=== PATIENT | male | born 1940 | race Caucasian/White ===

== ENCOUNTER 2016-12-21 10:38 | Inpatient (IN) ==
--- NOTE | 2016-12-21 13:33 | Internal Med History&Physical ---
Date of Encounter: 12/21/16 Time of Encounter: 13:31 Assessment and Plan (1) Supratherapeutic INR Current visit: Yes Status: Acute INR 3.8 and revealed today. Hold Coumadin. Check INR in the morning. Dose warfarin according. (2) Atrial fibrillation with RVR Current visit: No Status: Acute Currently on Cardizem drip rate controlled. Start oral diltiazem. Titrate off the drip. Monitor on telemetry. (3) Acute diastolic CHF (congestive heart failure) Current visit: Yes Status: Acute Likely exacerbated by A. fib with RVR. Trend troponins to rule out ACS as possible inciting factor. We will treat with IV Lasix twice a day. Strict I's and O's. Daily weights. No available EF on records. We will obtain echocardiogram. Internal Medicine - H&P: HPI Chief complaint: Shortness of breath Admitted From: Hospital to Hospital Transfer Plans for Post Hospital Care: Home History of present illness: Mr. Richardson is a 76 year old male with past medical history significant for chronic atrial fibrillation who presented to the hospital for evaluation of shortness of breath. 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 Associated with chest pressure, no chest pain. Denies fevers chills cough nausea vomiting diarrhea. He presented to [facility] where he was found to be in nature fibrillation with rapid ventricular response. He was given IV Cardizem and transferred to our facility for further workup and care. A 10 point review of systems positive as above. Also positive for chronic lower extremity swelling, positive for psoriasis rash on the legs. Past medical history: Essential hypertension, GERD, chronic atrial fibrillation , psoriasis Family history: Positive for history of heart disease in both parents. Social history: Never smoker. Quit drinking 2 years ago. Heavy alcohol use prior to that. Past Med Surg Social Fam HX - Past Medical History Medical history: atrial fibrillation, GERD, hypertension, other Psychiatric history: no psych history - Past Surgical History Surgical History: cataract, hip replacement, orthopedic, other, other - Social History Smoking Status: Never smoker Smokeless Tobacco Status: No Alcohol use: none Drug use: none - Family History Mother Living Status: Hx Family Cardiac Disorders: Yes Hx Family Respiratory Disorders: (CAD) Internal Medicine - H&P: Meds Warfarin [Coumadin] 2.5 mg PO DAILY 06/09/15 [History] 3 Allergy/AdvReac Type Severity Reaction Status Date / Time No Known Allergies Allergy Verified 12/21/16 08:22 All Systems PM: A 10-system review of systems was performed and is negative for pertinent findings except as documented above in the HPI. - Constitutional Vitals: Temp Pulse Resp BP Pulse Ox 97.7 F 66 12 139/87 94 12/21/16 12:24 12/21/16 12:24 12/21/16 12:24 12/21/16 12:24 12/21/16 13:26 General appearance: Present: A&O X 3, no acute distress - Eye Additional comments: Pupils are equal and round. Left pupil is reactive to light, right pupil is not. - Respiratory Respiratory exam: Present: rales. Absent: accessory muscle use, rhonchi, wheezes - Cardiovascular Cardiovascular exam: Present: irregular rhythm, +S1, +S2. Absent: diastolic murmur, gallop, rubs, systolic murmur - GI/Abdominal GI/Abdominal exam: Present: normal bowel sounds, soft, no peritoneal signs. Absent: distended, tenderness - Extremities Exam Extremities exam: Present: pedal edema, warm, radial pulses palpable and symmetrical. Absent: calf tenderness, cyanotic - Neurological Exam Neurological exam: Present: CN II-XII intact, oriented X3, no focal deficits. Absent: pronater drift, facial droop, speech deficit - Skin Skin exam: Present: dry, intact Internal Med - H&P Results - Labs Labs: Review records BNP today was 282 which is increased from previous value of 60 in May 2014 Per [facility] emergency department records: INR 3.8. Sodium 142 potassium 3.6. Chloride 109. CO2 21. BUN 16, creatinine 1.12. Glucose 109. - EKG Data -: EKG Interpreted by Myself (A. fib with RVR rate [address]-T wave changes.)
[2016-12-21] MEDS ORDERED: Naloxone 0.4 MG/ML INJ IVP PRN (13:39)
[2016-12-21] MEDS ORDERED: *HR* HYDROcodone/Acet 5/325 mg TABLET PO PRN (13:39)
[2016-12-21] MEDS ORDERED: Acetaminophen 325 MG TABLET PO PRN (13:39)
[2016-12-21] MEDS: dilTIAZem HCl 60 MG TABLET PO SCH ×3 (14:18→20:14)
[2016-12-21] MEDS: Furosemide 20 MG/2 ML VIAL IVP SCH (17:32)
[2016-12-21] MEDS ORDERED: Warfarin perPT PO PRN (18:00)
[2016-12-22 03:56] LABS: Basophils # 0.1 K/mcL (0.0-0.2); Eosinophils # 0.2 K/mcL (0.0-0.6); Eosinophils % 2.7 %; Hematocrit 35.7 % (37.5-50.1); Hemoglobin 12.2 g/dL (12.9-16.9); Immature Granulocytes % 0.2 % (0-4); Lymphocytes # 3.6 K/mcL (0.6-4.6); Lymphocytes % 43.6 %; Mean Corpuscular HGB Conc 34.2 g/dL (31.6-35.5); Mean Corpuscular Hemoglobin 30.9 pg (28.0-33.3); Mean Corpuscular Volume 90.4 fL (83.0-100.0); Mean Platelet Volume 9.8 fL (9.4-12.4); Monocytes # 0.7 K/mcL (0.0-1.3); Monocytes % 8.5 %; Neutrophils # 3.6 K/mcL (1.6-8.9); Platelet Count 265 K/mcL (140-400); Red Blood Count 3.95 M/mcL (4.19-5.50); Red Cell Distribution Width 14.1 % (11.5-14.5)
[2016-12-22 04:01] LABS: INR 3.1
[2016-12-22 04:09] LABS: BUN/Creatinine Ratio 16 (6-26); Blood Urea Nitrogen 20 mg/dL (8-26); Calcium 8.7 mg/dL (8.6-10.8); Carbon Dioxide 26 mEq/L (19-29); Chloride 110 mEq/L (98-109); Glucose 94 mg/dL (70-99); Magnesium 1.7 mg/dL (1.6-2.6); Osmolality,Calculated 302 (280-300); Potassium 3.3 mEq/L (3.5-4.5); Sodium 145 mEq/L (136-145); eGFR For African Americans > 60 (> 60); eGFR For Non-African Americans 57 (> 60)
[2016-12-22 06:54] VITALS: BP 152/99
[2016-12-22] MEDS: dilTIAZem HCl 60 MG TABLET PO SCH (09:03)
[2016-12-22] MEDS: Furosemide 20 MG/2 ML VIAL IVP SCH (09:03)
--- NOTE | 2016-12-22 09:36 | Internal Med Progress Note ---
Date of Encounter: 12/22/16 Time of Encounter: 09:31 - Assessment and plan (1) Atrial fibrillation with rapid ventricular response Current Visit: Yes Status: Acute Assessment and plan: Irregular rhythm. Currently rate controlled on diltiazem. Plan: Continue diltiazem. (2) Acute diastolic CHF (congestive heart failure) Current Visit: Yes Status: Acute Assessment and plan: Likely exacerbated by A. fib with RVR. Troponins negative. Lungs clear, mild LE edema Echo: EF 45-50%, milt MR/TR, severe pulmonary hypertension Previously on Lasix 5mg daily at home, but had not been taking it regularly Plan: Switch to oral lasix BID Continue daily weights and fluid restrictions (3) Supratherapeutic INR Current Visit: Yes Status: Acute Assessment and plan: INR now 3.1 (3.8 on admission) Home coumadin dose was 2.5 SuMWF and 5mg TuThSa Plan: Continue to hold coumadin Monitor PT/INR and dose coumadin according - Subjective Interval history: Pt reports he is doing well today. Presented with 2 day history of dyspnea and orthopnea. Reports his abdomen is less swollen today. Today he denies dyspnea, orthopnea, dyspnea on exertion, chest pain/pressure, abdominal pain, N/V/D, dysuria, or leg edema. - Constitutional Vitals: Temp Pulse Resp BP Pulse Ox 98.5 F 90 16 152/99 95 12/22/16 06:51 12/22/16 06:51 12/22/16 06:51 12/22/16 06:51 12/22/16 06:51 General appearance: Present: A&O X 3, no acute distress - Head Head exam: Present: atraumatic, normocephalic - Eye Eye exam: Present: conjuntiva pink, sclera anicteric - ENT ENT exam: Present: mucous membranes moist - Neck Neck exam general surgery: Present: supple, trachea midline. Absent: lymphadenopathy - Respiratory Respiratory exam: Present: CTAB. Absent: accessory muscle use, rales, rhonchi, wheezes - Cardiovascular Cardiovascular exam: Present: irregular rhythm, +S1, +S2. Absent: diastolic murmur, gallop, rubs, systolic murmur - GI/Abdominal GI/Abdominal exam: Present: normal bowel sounds, soft, no peritoneal signs. Absent: distended, tenderness - Extremities Exam Extremities exam: Present: pedal edema (+1 bilaterally), warm, radial pulses palpable and symmetrical. Absent: calf tenderness, cyanotic - Neurological Exam Neurological exam: Present: CN II-XII intact, oriented X3, no focal deficits. Absent: facial droop, speech deficit - Skin Skin exam: Present: dry, intact, rash (psoriasis on bilateral LE) Internal Medicine: Result - Labs CBC & Chem 7: 12/22/16 03:19 12/22/16 03:19 Labs: Short CBC 12/22/16 Range/Units 03:19 WBC 8.3 (4.3-11.1) K/mcL Hgb 12.2 L D (12.9-16.9) g/dL Hct 35.7 L (37.5-50.1) % Plt Count 265 (140-400) K/mcL Neutrophils # 3.6 (1.6-8.9) K/mcL BMP 12/22/16 03:19 Sodium 145 Potassium 3.3 L Chloride 110 H Carbon Dioxide 26 BUN 20 Creatinine 1.23 Glucose 94 Calcium 8.7 Cardiac Enzymes 12/21/16 12/21/16 Range/Units 14:18 19:39 Troponin I 0.01 0.02 (0-0.03) ng/mL - ABG Interpretation ABG results: PT/INR, D-dimer PT 34.0 Seconds (9.4-12.1) H 12/22/16 03:19 - Impressions Impressions Echocardiogram 12/22/16 07:00 Impressions: Technically challenging study - LV endocardial border was not always well visualized. Overall, LV systolic function appears low normal to mildly reduced, EF estimated 45-50%. Consider repeat limited study with Definity. Normal right ventricular size and function. Mild mitral regurgitation that may be underestimated. Mild tricuspid regurgitation. Severe pulmonary hypertension. RVSP 67 mmHg. The IVC is dilated. Left Ventricular Wall Motion: Rest Echo Findings The apical anterior, mid anterior and basal anterior grey were not visualized. All other wall segments showed normal motion. Findings: Study Quality * Technically sub-optimal due to body habitus. ECG Findings * Probable atrial fibrillation. Left Ventricle * Indeterminate diastolic function. * LVEF 45-50%. * Normal LV size and wall thickness. Aorta * Normally sized aortic root. Right Ventricle * Normal right ventricular structure and function. Left Atrium * Normal left atrial size. Right Atrium * Normal right atrial size. Aortic Valve * No aortic regurgitation. * Aortic valve not well visualized. * No aortic stenosis. Mitral Valve * Normal mitral valve structure. * No mitral stenosis. * Mild mitral annular calcification * Mild mitral regurgitation that may be underestimated. Tricuspid Valve * Tricuspid valve not well visualized. * Mild tricuspid regurgitation. * Estimated RA pressure is 15 mmHg. * Estimated RVSP is 67 mmHg. * Severe pulmonary hypertension. Pulmonic Valve * Pulmonic valve is not well visualized. * No pulmonic stenosis. * No pulmonic regurgitation. Pulmonary Artery * Pulmonary artery not well visualized. Pericardium * There is no pericardial effusion present. Interatrial Septum * No evidence of PFO by color Doppler. IVC * The IVC is dilated. * < 50% respiratory change. Consult Discharge Plan - Plan Referrals: Jessica Bird CNP [Primary Care Provider] - 12/29/16 10:20 am
--- NOTE | 2016-12-22 10:50 | Discharge Summary ---
<Trenton Mao Nitish - Last Filed: 12/22/16 10:43> Date of Encounter: 12/22/16 Time of Encounter: 10:43 - Discharge Diagnosis (1) Atrial fibrillation with rapid ventricular response Priority: Primary Status: Acute (2) Acute diastolic CHF (congestive heart failure) Priority: Secondary Status: Acute (3) Supratherapeutic INR Priority: Secondary Status: Acute - Discharge Medications Prescriptions: Diltiazem HCl [Diltiazem 24Hr ER] 300 mg PO DAILY #30 cap.er.24h Furosemide [Lasix] 10 mg PO DAILY #30 tablet Warfarin [Coumadin] 2.5 mg PO SUMOWEFR #30 tablet Warfarin [Coumadin] 5 mg PO TUTHSA #30 tablet Home Medications: Omeprazole [PriLOSEC] 20 mg PO DAILY 12/21/16 [History] Diltiazem HCl [Diltiazem 24Hr ER] 300 mg PO DAILY #30 cap.er.24h 12/22/16 [Rx] Furosemide [Lasix] 10 mg PO DAILY #30 tablet 12/22/16 [Rx] Warfarin [Coumadin] 2.5 mg PO SUMOWEFR #30 tablet 12/22/16 [Rx] Warfarin [Coumadin] 5 mg PO TUTHSA #30 tablet 12/22/16 [Rx] Allergies/Adverse Reactions: 3 Allergy/AdvReac Type Severity Reaction Status Date / Time No Known Allergies Allergy Verified 12/21/16 16:11 Procedures/tests Complete & Pending: Procedures Performed prior 72 hours Category Date Time Status EV echocardiogram Routine Y 12/22/16 07:00 Completed Date of admission: 12/21/16 14:23 Primary care physician: Jessica Bird CNP Discharging clinician: Gera Xiong Anticipated date of discharge: 12/22/16 - Patient Status Disposition: Home, Self-Care Condition: Fair Functional capacity at discharge: independent ambulation Overall status at discharge: patient is back to baseline - Discharge Instructions Instructions: Diltiazem (By mouth), Furosemide (By mouth), Warfarin (By mouth) , Heart Failure (DC), Atrial Fibrillation (DC) Follow Up With: Jessica Bird CNP [Primary Care Provider] - 12/29/16 10:20 am Additional Instructions: Take Diltiazem daily as prescribed. Follow-up with your PCP in less than 7 days. Follow-up with the coumadin clinic. Do NOT take coumadin today. You may resume your normal coumadin schedule tomorrow (12/23/16) morning. Take Lasix 10 mg daily. Measure your weight daily - call your doctor with an increase in 3-5 pounds over 3 days. If you develop difficulty breathing or leg swelling, call your PCP or return to the Emergency Department. - Diet and Activity Activity: increase activity as tolerated Diet: low fat, low cholesterol Interval History: Pt doing well with no complaints. Denies dyspnea, orthopnea, dyspnea on exertion , chest pain, abdominal pain, N/V/D, dysuria, or leg pain/edema. Hospital course: Mr. Richardson is a 76 year old male presenting to the hospital with gradually worsening dyspnea and orthopnea found to be in A. fib with RVR after some confusion about his medication regimen. Cardiazem was started and then switched to oral diltiazem. Rate is now controlled. An Echo was completed revealing LVEF 45-50%, mild mitral and tricuspid regurg, and severe pulmonary hypertension. The patient also had a supratherapeutic INR of 3.8. INR on discharge is 3.1 with instructions to hold coumadin for one more day. He is to resume his coumadin on 12/23/16. He is to resume diltiazem and lasix. He is to follow-up with his PCP and the coumadin clinic. He is to take He is without dyspnea now, hemodynamically stable, and to be discharged home. - Time Spent with Patient Total time spent providing and/or coordinating discharge services: - Constitutional Vitals: Temp Pulse Resp BP Pulse Ox 98.5 F 90 16 152/99 95 12/22/16 06:51 12/22/16 06:51 12/22/16 06:51 12/22/16 06:51 12/22/16 06:51 General appearance: Present: A&O X 3, no acute distress - Head Head exam: Present: atraumatic, normocephalic - Eye Eye exam: Present: conjuntiva pink, sclera anicteric - ENT ENT exam: Present: mucous membranes moist - Neck Neck exam general surgery: Present: supple, trachea midline. Absent: lymphadenopathy - Respiratory Respiratory exam: Present: CTAB. Absent: accessory muscle use, rales, rhonchi, wheezes - Cardiovascular Cardiovascular exam: Present: irregular rhythm, +S1, +S2. Absent: diastolic murmur, systolic murmur - GI/Abdominal GI/Abdominal exam: Present: normal bowel sounds, soft, no peritoneal signs. Absent: distended, tenderness - Extremities Exam Extremities exam: Present: warm, radial pulses palpable and symmetrical. Absent : calf tenderness, cyanotic, pedal edema - Neurological Exam Neurological exam: Present: CN II-XII intact, oriented X3, no focal deficits. Absent: facial droop, speech deficit - Skin Skin exam: Present: dry, intact, rash (psoraisis on bilateral LE) <Gera Xiong - Last Filed: 12/22/16 17:19> Date of Encounter: 12/22/16 - Discharge Diagnosis (1) Atrial fibrillation Priority: Primary Status: Acute Qualifiers: Atrial fibrillation type: persistent Qualified Code(s): I48.1 - Persistent atrial fibrillation (2) Acute diastolic CHF (congestive heart failure) Status: Acute (3) Supratherapeutic INR Status: Acute (4) GERD (gastroesophageal reflux disease) Priority: Secondary Status: Chronic Qualifiers: Esophagitis presence: without esophagitis Qualified Code(s): K21.9 - Gastro -esophageal reflux disease without esophagitis (5) Hypertension Status: Chronic Qualifiers: Hypertension type: essential hypertension Qualified Code(s): I10 - Essential (primary) hypertension Procedures/tests Complete & Pending: Procedures Performed prior 72 hours Category Date Time Status EV echocardiogram Routine Y 12/22/16 07:00 Completed Date of admission: 12/21/16 14:23 Primary care physician: Jessica Bird CNP Hospital course: Mr. Richardson is a 76 year old male - Time Spent with Patient Total time spent providing and/or coordinating discharge services: 39min - Constitutional Vitals: Temp Pulse Resp BP Pulse Ox 98.5 F 90 16 152/99 95 12/22/16 06:51 12/22/16 06:51 12/22/16 06:51 12/22/16 06:51 12/22/16 06:51 - Attending Attestation I examined this patient and my medical decision-making was reviewed with the Resident Physician on 12/22/16. I agree with the documented findings, disposition and treatment plan as described except to the extent set forth below. Mr Richardson has been admitted for rapid a fib and CHF. His rate is now well controlled and he has diuresed. He has not been taking his meds consistently at home. He is now afebrile with stable vitals. Exam Alert. Comfortable Mucus membranes dry Heart irreg - not tachy Lungs clear now Abd soft Plan D/C home today on PO meds.
[2016-12-22] MEDS ORDERED: *HR* Warfarin 2.5 MG TABLET PO ONE (18:00)
== END 2016-12-22 13:25 | disposition home or self-care (01) | DRG 308 ==
LOC: 2NENU
PROVIDERS: ADMIT Internal Medicine; ATTEND Internal Medicine

== ENCOUNTER 2021-05-13 15:29 | Observation (INO) ==
[2021-05-13] MEDS ORDERED: Ondansetron 4 MG/2 ML VIAL IVP PRN (19:28)
[2021-05-13] MEDS ORDERED: Melatonin 3 MG TABLET PO PRN (19:28)
[2021-05-13] MEDS ORDERED: Naloxone 0.4 MG/ML INJ IVP PRN (19:28)
[2021-05-13] MEDS ORDERED: Acetaminophen 325 MG TABLET PO PRN (19:28)
[2021-05-13] MEDS ORDERED: *HR* LORazepam 2 MG/ML VIAL IVP STA (19:32)
[2021-05-13] MEDS ORDERED: *HR* Metoprolol 5 MG/5 ML VIAL IVP ONE (19:39)
[2021-05-13] MEDS: Ipratropium/Albuterol Neb 3 ML IH SCH ×2 (20:40→23:28)
[2021-05-13] MEDS ORDERED: *HR* Heparin 5,000 UNIT/ML VIAL IVP ONE (20:43)
[2021-05-13] MEDS ORDERED: *HR* Heparin 5,000 UNIT/ML VIAL IVP PRN ×2 (20:43)
[2021-05-13] MEDS: Budesonide/Formoterol 160/4.5 1 PUFF INH IH SCH (20:44)
[2021-05-13] MEDS ORDERED: Heparin 25,000UNIT/250ML 1/2NS 25,000 UNIT/250 ML IV.SOLN IVC SCH (20:45)
[2021-05-13] MEDS ORDERED: Perflutren Lipid Microsphere 1.3 ML in 0.9 % Sodium Chloride 8.7 ML IVP PRN (20:45)
[2021-05-13] MEDS ORDERED: Furosemide 20 MG/2 ML VIAL IVP ONE (20:46)
[2021-05-13] MEDS: DilTIAZem 50 MG/50 ML IV.SOLN IVC SCH (21:00)
[2021-05-13 21:05] LABS: Heparin anti-factor XA UFH 0.24 IU/mL (0.30-0.70)
[2021-05-13 21:06] LABS: INR 1.4; Prothrombin Time 15.8 Seconds (9.4-12.1)
[2021-05-13 21:08] LABS: Activated Partial Thrombo Time 33.4 Seconds (26.0-36.0)
[2021-05-13] MEDS: Chlorhexidine Rinse 15 ML MOUTHWASH MM SCH (21:16)
[2021-05-13] MEDS ORDERED: Artificial Tears SOLN 15 ML BOTTLE BOTH EYES PRN (21:39)
[2021-05-13] MEDS ORDERED: Saliva Stimulant 44.3ml BOTTLE PO PRN (21:39)
[2021-05-13] MEDS ORDERED: Saline Nasal Spray 44 ML BOTTLE NS PRN (21:39)
[2021-05-13 23:14] LABS: Adenovirus Not Detected (Not Detect); Bordetella Pertussis Not Detected (Not Detect); Chlamydophila pneumoniae Not Detected (Not Detect); Coronavirus 229E Not Detected (Not Detect); Coronavirus HKU1 Not Detected (Not Detect); Coronavirus NL63 Not Detected (Not Detect); Coronavirus OC43 Not Detected (Not Detect); Human Metapneumovirus Not Detected (Not Detect); Human Rhinovirus/Enterovirus Not Detected (Not Detect); Influenza A Subtype 2009 H1 Not Detected (Not Detect); Influenza B Not Detected (Not Detect); Mycoplasma pneumoniae Not Detected (Not Detect); Parainfluenza Virus 1 Not Detected (Not Detect); Parainfluenza Virus 2 Not Detected (Not Detect); Parainfluenza Virus 3 Not Detected (Not Detect); Parainfluenza Virus 4 Not Detected (Not Detect); Respiratory Syncytial Virus Not Detected (Not Detect); SARS-CoV-2 Not Detected (Not Detect)
[2021-05-14] MEDS ORDERED: methylPREDNISolone 125 MG/2 ML VIAL IVP SCH
[2021-05-14] MEDS ORDERED: traZODone 50 MG TABLET PO ONE (00:25)
[2021-05-14] MEDS: MethylPREDNISolone 40 MG/ML VIAL IVP SCH ×2 (00:46→08:24)
[2021-05-14] MEDS: DilTIAZem 50 MG/50 ML IV.SOLN IVC SCH ×3 (01:04→09:37)
[2021-05-14] MEDS: Ipratropium/Albuterol Neb 3 ML IH SCH ×3 (03:49→11:27)
[2021-05-14 04:48] LABS: Basophils % 0.1 %; Hematocrit 37.6 % (37.5-50.1); Hemoglobin 12.8 g/dL (12.9-16.9); Immature Granulocytes % 0.3 % (0-4); Lymphocytes # 1.6 K/mcL (0.6-4.6); Lymphocytes % 23.1 %; Mean Corpuscular Hemoglobin 29.6 pg (28.0-33.3); Mean Platelet Volume 9.1 fL (9.4-12.4); Monocytes # 0.1 K/mcL (0.0-1.3); Monocytes % 1.7 %; Neutrophils # 5.3 K/mcL (1.6-8.9); Platelet Count 378 K/mcL (140-400); Red Blood Count 4.32 M/mcL (4.19-5.50); Red Cell Distribution Width 14.3 % (11.5-14.5); Segmented Neutrophils % 74.8 %; White Blood Count 7.1 K/mcL (4.3-11.1)
[2021-05-14 05:05] LABS: Estimated Average Glucose 137 mg/dl; Hemoglobin A1C 6.4 %
[2021-05-14 05:09] LABS: Chol/HDL Ratio 3.2 (0-4.9)
[2021-05-14 05:11] LABS: Calcium 9.3 mg/dL (8.6-10.3); Magnesium 1.7 mg/dL (1.6-2.6); Phosphorous 4.8 mg/dL (2.7-4.5); Potassium 3.2 mEq/L (3.5-5.1)
[2021-05-14] MEDS: Budesonide/Formoterol 160/4.5 1 PUFF INH IH SCH (07:36)
[2021-05-14] MEDS: Chlorhexidine Rinse 15 ML MOUTHWASH MM SCH (08:24)
[2021-05-14] MEDS ORDERED: Furosemide 20 MG/2 ML VIAL IVP SCH (09:00)
[2021-05-14] MEDS ORDERED: Bumetanide 1 MG TABLET PO SCH (09:00)
[2021-05-14] MEDS ORDERED: Multivit/Ca/Min/Fe/FA 1 TAB TABLET PO SCH ×2 (09:00)
[2021-05-14] MEDS ORDERED: DilTIAZem CD (24hr) 300 MG CAP.ER.24H PO SCH (09:00)
[2021-05-14] MEDS ORDERED: Aspirin Enteric Coated 81 MG Tablet PO SCH (09:00)
[2021-05-14 10:57] VITALS: BP 122/70; PULSE 104; TEMP 98.5; O2SAT 93
== END 2021-05-14 13:22 | disposition left against medical advice (07) ==
LOC: 3BNU → SUATTDRO 17:43
PROVIDERS: ADMIT Internal Medicine; ATTEND Internal Medicine